=== PATIENT | female | born 1940 | race African-American/Black ===

== ENCOUNTER 2022-12-19 17:37 | Inpatient (IN) | payer OTHER ==
[2022-12-19] MEDS ORDERED: ACETAMINOPHEN 1000 MG/100 ML BAG IVPB ONE (18:40)
[2022-12-19] MEDS ORDERED: ONDANSETRON 4 MG/2 ML VIAL IVPUSH ONE (18:40)
[2022-12-19] MEDS ORDERED: SODIUM CHLORIDE 0.9% 1000 ML INFUS.BAG IV ONE ×2 (18:40→23:07)
[2022-12-19] MEDS ORDERED: FAMOTIDINE 20 MG/50 ML IVPB 20 MG/50 ML MG IVPB ONE ×2 (18:40→18:49)
[2022-12-19] MEDS ORDERED: ONDANSETRON 4 MG/2 ML VIAL ONE (18:48)
[2022-12-19] MEDS ORDERED: ACETAMINOPHEN INJECTION 100 ML IVPB ONE (18:48)
[2022-12-19 19:21] LABS: EOS % 0.4 % (0-4.5); HEMATOCRIT 24.8 % (32.4-45.2); HEMOGLOBIN 8.3 GM/dL (10.7-15.3); LYMPH % 24.3 % (8-40); MCH 31.1 pg (25.7-33.7); MCHC 33.4 g/dl (32.0-36.0); MEAN CELL VOLUME 93.1 fl (80-96); MONO % 8.2 % (3.8-10.2); NEUT % 66.1 % (42.8-82.8); PLATELET COUNT 326 10^3/uL (134-434); RBC 2.66 M/mm3 (3.60-5.2); RDW 14.7 % (11.6-15.6); WHITE BLOOD COUNT 6.7 K/mm3 (4.0-10.0)
[2022-12-19 19:32] LABS: INR 1.15 (0.83-1.09); PROTHROMBIN TIME (PATIENT) 13.3 SEC (9.7-13.0)
[2022-12-19 19:35] LABS: ACTIVATED PTT 26.1 SECONDS (25.2-36.5)
[2022-12-19 19:38] LABS: VENOUS O2 SATURATION 37.8 % (70-80); VENOUS PCO2 32.7 mmHg (38-52); VENOUS PH 7.456 (7.310-7.410)
[2022-12-19 19:47] LABS: CALCIUM 9.4 mg/dL (8.5-10.1)
[2022-12-19 19:48] LABS: ALBUMIN 3.2 g/dl (3.4-5.0); BLOOD UREA NITROGEN 12.7 mg/dL (7-18)
[2022-12-19 19:51] LABS: CREATININE 0.5 mg/dL (0.55-1.3)
[2022-12-19 19:52] LABS: BILIRUBIN,TOTAL 0.5 mg/dL (0.2-1); TOT PROT 6.4 g/dl (6.4-8.2)
[2022-12-19] MEDS ORDERED: DEXTROSE 50%-WATER 25 GM/50 ML DISP.SYRIN ONE (20:04)
[2022-12-19] MEDS ORDERED: DEXTROSE 50%-WATER - 25 GM/50 ML VIAL IVPUSH ONE (20:09)
[2022-12-20 02:23] LABS: EPI CELLS 5 /uL (0-25.1); HYALINE CASTS 2 /uL (0-3.1); PH,URINE 5.5 (5.0-8.0); URINE APPEARANCE CLEAR; URINE BACTERIA 0 /uL (0-1359); URINE BILIRUBIN NEGATIVE (NEGATIVE); URINE COLOR YELLOW; URINE GLUCOSE (UA) 1+ (NEGATIVE); URINE KETONE 2+ (NEGATIVE); URINE LEUK ESTERASE NEGATIVE (NEGATIVE); URINE NITRITE NEGATIVE (NEGATIVE); URINE PROTEIN NEGATIVE (NEGATIVE); URINE RBC 13 /uL (0-23.9); URINE UROBILINOGEN 0.2 mg/dL (0.2-1.0); URINE WBC 21 /uL (0-25.8)
[2022-12-20] MEDS ORDERED: ACETAMINOPHEN 325 MG TABLET (FP) PO PRN (06:33)
[2022-12-20] MEDS ORDERED: INSULIN SLIDING SCALE (NOVOLOG) 1 VIAL SQ SCH (07:00)
[2022-12-20 07:55] LABS: BASO % 0.6 % (0-2.0); EOS % 0.8 % (0-4.5); HEMATOCRIT 23.6 % (32.4-45.2); HEMOGLOBIN 7.8 GM/dL (10.7-15.3); LYMPH % 27.3 % (8-40); MCH 30.6 pg (25.7-33.7); MCHC 32.9 g/dl (32.0-36.0); MEAN CELL VOLUME 93.1 fl (80-96); MEAN PLT VOLUME 7.1 fl (7.5-11.1); MONO % 7.9 % (3.8-10.2); NEUT % 63.4 % (42.8-82.8); PLATELET COUNT 324 10^3/uL (134-434); RBC 2.53 M/mm3 (3.60-5.2); RDW 14.9 % (11.6-15.6); WHITE BLOOD COUNT 5.2 K/mm3 (4.0-10.0)
[2022-12-20 08:15] LABS: ALBUMIN 2.7 g/dl (3.4-5.0); CALCIUM 8.5 mg/dL (8.5-10.1)
[2022-12-20 08:16] LABS: BLOOD UREA NITROGEN 7.2 mg/dL (7-18); MAGNESIUM 1.9 mg/dL (1.8-2.4)
[2022-12-20 08:18] LABS: CREATININE 0.4 mg/dL (0.55-1.3)
[2022-12-20 08:19] LABS: PHOSPHOROUS 2.6 mg/dL (2.5-4.9)
[2022-12-20 08:20] LABS: BILIRUBIN,TOTAL 0.4 mg/dL (0.2-1); TOT PROT 5.8 g/dl (6.4-8.2)
[2022-12-20] MEDS: DEXTROSE 5%-NORMAL SALINE 1,000 ML IV SCH (21:55)
[2022-12-21] MEDS: POLYETHYLENE GLYCOL (HEALTHYLAX) 3350 17 GM PACKET PO SCH (10:24)
[2022-12-21 10:44] LABS: BASO % 0.3 % (0-2.0); HEMATOCRIT 25.2 % (32.4-45.2); HEMOGLOBIN 8.6 GM/dL (10.7-15.3); LYMPH % 25.5 % (8-40); MCH 31.3 pg (25.7-33.7); MCHC 33.9 g/dl (32.0-36.0); MEAN CELL VOLUME 92.2 fl (80-96); MONO % 8.7 % (3.8-10.2); NEUT % 64.5 % (42.8-82.8); PLATELET COUNT 287 10^3/uL (134-434); RBC 2.73 M/mm3 (3.60-5.2); RDW 14.8 % (11.6-15.6); WHITE BLOOD COUNT 5.1 K/mm3 (4.0-10.0)
[2022-12-21 11:04] LABS: CALCIUM 8.7 mg/dL (8.5-10.1)
[2022-12-21 11:09] LABS: CREATININE 0.5 mg/dL (0.55-1.3)
[2022-12-21 11:10] LABS: BLOOD UREA NITROGEN 5.9 mg/dL (7-18)
[2022-12-21] MEDS: DEXTROSE 5%-NORMAL SALINE 1,000 ML IV SCH (11:55)
[2022-12-21] MEDS: ENOXAPARIN NA (PORCINE) 40 MG/0.4 ML DISP.SYRIN SQ SCH (15:11)
[2022-12-22 08:38] LABS: HEMATOCRIT 24.6 % (32.4-45.2); HEMOGLOBIN 8.1 GM/dL (10.7-15.3); MCH 30.3 pg (25.7-33.7); MCHC 32.9 g/dl (32.0-36.0); MEAN CELL VOLUME 91.9 fl (80-96); MEAN PLT VOLUME 7.2 fl (7.5-11.1); PLATELET COUNT 280 10^3/uL (134-434); RBC 2.67 M/mm3 (3.60-5.2); RDW 14.6 % (11.6-15.6); WHITE BLOOD COUNT 4.4 K/mm3 (4.0-10.0)
[2022-12-22] MEDS: ENOXAPARIN NA (PORCINE) 40 MG/0.4 ML DISP.SYRIN SQ SCH (09:03)
[2022-12-22] MEDS: POLYETHYLENE GLYCOL (HEALTHYLAX) 3350 17 GM PACKET PO SCH (09:04)
[2022-12-22] MEDS ORDERED: BISACODYL 10 MG SUPP.RECT PR ONE (16:01)
[2022-12-22] MEDS: PANTOPRAZOLE SODIUM 40 MG VIAL IVPUSH SCH (18:10)
[2022-12-23] MEDS: POLYETHYLENE GLYCOL (HEALTHYLAX) 3350 17 GM PACKET PO SCH (09:22)
[2022-12-23] MEDS: PANTOPRAZOLE SODIUM 40 MG VIAL IVPUSH SCH (09:22)
[2022-12-23 11:31] LABS: BASO % 0.5 % (0-2.0); HEMATOCRIT 22.1 % (32.4-45.2); HEMOGLOBIN 7.5 GM/dL (10.7-15.3); LYMPH % 21.4 % (8-40); MCH 31.4 pg (25.7-33.7); MCHC 34.1 g/dl (32.0-36.0); MEAN PLT VOLUME 6.8 fl (7.5-11.1); MONO % 7.6 % (3.8-10.2); NEUT % 69.5 % (42.8-82.8); PLATELET COUNT 250 10^3/uL (134-434); RDW 14.6 % (11.6-15.6)
[2022-12-23 11:50] LABS: CALCIUM 8.5 mg/dL (8.5-10.1)
[2022-12-23 11:51] LABS: BLOOD UREA NITROGEN 8.7 mg/dL (7-18)
[2022-12-23 11:53] LABS: CREATININE 0.5 mg/dL (0.55-1.3)
[2022-12-23] MEDS ORDERED: ACETAMINOPHEN 325 MG TABLET (FP) PO PRN (14:51)
[2022-12-24] MEDS: POLYETHYLENE GLYCOL (HEALTHYLAX) 3350 17 GM PACKET PO SCH (09:41)
[2022-12-24 10:04] LABS: BASO % 0.5 % (0-2.0); HEMATOCRIT 28.1 % (32.4-45.2); HEMOGLOBIN 9.3 GM/dL (10.7-15.3); LYMPH % 28.9 % (8-40); MCH 29.4 pg (25.7-33.7); MCHC 33.2 g/dl (32.0-36.0); MEAN CELL VOLUME 88.7 fl (80-96); MEAN PLT VOLUME 7.6 fl (7.5-11.1); NEUT % 60.6 % (42.8-82.8); PLATELET COUNT 251 10^3/uL (134-434); RBC 3.17 M/mm3 (3.60-5.2); WHITE BLOOD COUNT 5.2 K/mm3 (4.0-10.0)
[2022-12-24 10:07] LABS: INR 1.02 (0.83-1.09); PROTHROMBIN TIME (PATIENT) 11.8 SEC (9.7-13.0)
[2022-12-24] MEDS: PANTOPRAZOLE SODIUM 40 MG VIAL IVPUSH SCH (10:11)
[2022-12-24 10:27] LABS: CALCIUM 8.9 mg/dL (8.5-10.1)
[2022-12-24 10:28] LABS: BLOOD UREA NITROGEN 8.2 mg/dL (7-18)
[2022-12-24 10:31] LABS: CREATININE 0.5 mg/dL (0.55-1.3)
[2022-12-24 16:51] VITALS: BMI 16.6
[2022-12-24 18:55] VITALS: RESP 18
[2022-12-24] MEDS: PANTOPRAZOLE 40 MG TABLET PO SCH (22:10)
[2022-12-25] MEDS: PANTOPRAZOLE 40 MG TABLET PO SCH (09:05)
[2022-12-25] MEDS: POLYETHYLENE GLYCOL (HEALTHYLAX) 3350 17 GM PACKET PO SCH (09:08)
[2022-12-25 09:11] LABS: HEMOGLOBIN 9.3 GM/dL (10.7-15.3); MCH 30.6 pg (25.7-33.7); MCHC 34.5 g/dl (32.0-36.0); MEAN CELL VOLUME 88.6 fl (80-96); MEAN PLT VOLUME 7.1 fl (7.5-11.1); PLATELET COUNT 245 10^3/uL (134-434); RBC 3.05 M/mm3 (3.60-5.2); RDW 18.1 % (11.6-15.6); WHITE BLOOD COUNT 4.7 K/mm3 (4.0-10.0)
[2022-12-25 10:30] LABS: CREATININE 0.4 mg/dL (0.55-1.3)
[2022-12-25 10:33] LABS: BLOOD UREA NITROGEN 7.2 mg/dL (7-18)
[2022-12-25 18:47] VITALS: BP 133/80; PULSE 102; TEMP 98.3
== END 2022-12-25 19:03 | disposition home or self-care (01) | DRG 377 ==
LOC: JER 17:37 → JERBED 22:20 → J4W 12-20 06:08 → OBSVTOIN 12-20 12:36 → J5S 12-23 12:30
PROVIDERS: ADMIT Internal Medicine; ATTEND Internal Medicine
PROC: 30233N1 Transfusion of Nonautologous Red Blood Cells into Peripheral Vein, Percutaneous Approach (ICD-10-PCS; 2022-12-24)
PROC: 0DB68ZX Excision of Stomach, Via Natural or Artificial Opening Endoscopic, Diagnostic (ICD-10-PCS; principal; 2022-12-24 11:30)
DX: K29.61 Other gastritis with bleeding (principal); E43 Unspecified severe protein-calorie malnutrition; Z68.1 Body mass index [BMI] 19.9 or less, adult; K31.5 Obstruction of duodenum; Y92.488 Other paved roadways as the place of occurrence of the external cause; D50.9 Iron deficiency anemia, unspecified; R55 Syncope and collapse; E16.2 Hypoglycemia, unspecified; R10.9 Unspecified abdominal pain; K44.9 Diaphragmatic hernia without obstruction or gangrene; R41.82 Altered mental status, unspecified; K29.60 Other gastritis without bleeding; I10 Essential (primary) hypertension; K26.9 Duodenal ulcer, unspecified as acute or chronic, without hemorrhage or perforation; K59.00 Constipation, unspecified; E78.5 Hyperlipidemia, unspecified; W18.39XA Other fall on same level, initial encounter
CPT/HCPCS: 0241U-QW; 36415; 36430; 70450-TC; 71045-TC-FY; 72125-TC; 73130-TC-LT-FY; 73130-TC-RT-FY; 73140-TC-LT-FY; 74177-TC; 74240-TC-FY; 80048; 80053; 80061; 81003; 82272; 82607; 82728; 82746; 82803; 82962; 83010; 83540; 83550; 83605; 83615; 83690; 83735; 84100; 84155; 84165; 84443; 84466; 84484; 85025; 85027; 85045; 85610; 85730; 86850; 86900; 86901; 86922; 87086; 88305-TC; 88341-TC; 93005; 93010; 93306-TC; 93880-TC; 97116-GP; 97161-GP; 99285-25; G0378; P9058; Q9967

== ENCOUNTER 2023-04-01 04:51 | Day surgery (SDC) | payer OTHER ==
[2023-03-31 09:58] VITALS: BMI 18.3
[2023-04-01 07:40] VITALS: TEMP 98
[2023-04-01 08:54] VITALS: BP 162/74; PULSE 71; RESP 20
== END 2023-04-01 09:25 | disposition home or self-care (01) ==
LOC: JASU-ENDO 04:51
PROVIDERS: ATTEND Student in an Organized Health Care Education/Training Program
PROC: 0DB78ZX Excision of Stomach, Pylorus, Via Natural or Artificial Opening Endoscopic, Diagnostic (ICD-10-PCS; 2023-04-01)
PROC: 0DB68ZX Excision of Stomach, Via Natural or Artificial Opening Endoscopic, Diagnostic (ICD-10-PCS; 2023-04-01)
PROC: 0DB48ZX Excision of Esophagogastric Junction, Via Natural or Artificial Opening Endoscopic, Diagnostic (ICD-10-PCS; principal; 2023-04-01 08:00)
DX: K21.00 Gastro-esophageal reflux disease with esophagitis, without bleeding (principal); K44.9 Diaphragmatic hernia without obstruction or gangrene; K29.50 Unspecified chronic gastritis without bleeding; B96.81 Helicobacter pylori [H. pylori] as the cause of diseases classified elsewhere
CPT/HCPCS: 88305-TC; 88342-TC

== ENCOUNTER 2023-12-14 16:45 | Inpatient (IN) | payer OTHER ==
[2023-12-14] MEDS ORDERED: ACETAMINOPHEN INJECTION 100 ML IVPB ONE (17:30)
[2023-12-14] MEDS ORDERED: DEXTROSE 50%-WATER 25 GM/50 ML DISP.SYRIN ONE ×3 (17:30→18:39)
[2023-12-14] MEDS: ACETAMINOPHEN 1000 MG/100 ML BAG IVPB ONE (17:59)
[2023-12-14] MEDS: LACTATED RINGERS SOLUTION 1000 ML INFUS.BAG IV ONE (17:59)
[2023-12-14 18:05] LABS: VENOUS BASE EXCESS -2.4 mmol/L (-2-2); VENOUS O2 SATURATION 49.7 % (70-80); VENOUS PCO2 41.9 mmHg (38-52); VENOUS PH 7.357 (7.310-7.410)
[2023-12-14 18:10] LABS: EPI CELLS 19 /uL (0-25.1); HYALINE CASTS 10 /uL (0-3.1); URINE APPEARANCE CLOUDY; URINE BACTERIA 1 /uL (0-1359); URINE BILIRUBIN 1+ (NEGATIVE); URINE COLOR DK YELLOW; URINE GLUCOSE (UA) NEGATIVE (NEGATIVE); URINE KETONE TRACE (NEGATIVE); URINE LEUK ESTERASE NEGATIVE (NEGATIVE); URINE NITRITE NEGATIVE (NEGATIVE); URINE PROTEIN 1+ (NEGATIVE); URINE UROBILINOGEN 0.2 mg/dL (0.2-1.0); URINE WBC 39 /uL (0-25.8)
[2023-12-14 18:11] LABS: EOS % 2.2 % (0-4.5); HEMATOCRIT 35.7 % (32.4-45.2); HEMOGLOBIN 11.5 GM/dL (10.7-15.3); LYMPH % 2.7 % (8-40); MCH 29.9 pg (25.7-33.7); MCHC 32.4 g/dl (32.0-36.0); MEAN CELL VOLUME 92.4 fl (80-96); MEAN PLT VOLUME 8.6 fl (7.5-11.1); MONO % 0.6 % (3.8-10.2); NEUT % 94.5 % (42.8-82.8); PLATELET COUNT 218 10^3/uL (134-434); RBC 3.86 M/mm3 (3.60-5.2); WHITE BLOOD COUNT 13.2 K/mm3 (4.0-10.0)
[2023-12-14 18:15] LABS: INR 1.19 (0.83-1.09); PROTHROMBIN TIME (PATIENT) 13.8 SEC (9.7-13.0)
[2023-12-14] MEDS: DEXTROSE 50%-WATER 25 GM/50 ML DISP.SYRIN IVPUSH ONE (18:15)
[2023-12-14 18:17] LABS: ACTIVATED PTT 28.3 SECONDS (25.2-36.5)
[2023-12-14 18:29] LABS: ALBUMIN 1.8 g/dl (3.4-5.0); BLOOD UREA NITROGEN 59.8 mg/dL (7-18); CALCIUM 9.7 mg/dL (8.5-10.1); MAGNESIUM 3.3 mg/dL (1.8-2.4)
[2023-12-14 18:31] LABS: CREATININE 1.2 mg/dL (0.55-1.3)
[2023-12-14 18:32] LABS: PHOSPHOROUS 5.4 mg/dL (2.5-4.9)
[2023-12-14 18:34] LABS: TOT PROT 8.4 g/dl (6.4-8.2)
[2023-12-14 18:44] LABS: LACTIC ACID 3.2 mmol/L (0.4-2.0)
[2023-12-14] MEDS: DEXTROSE 50%-WATER - 25 GM/50 ML VIAL IVPUSH ONE (18:46)
[2023-12-14] MEDS ORDERED: AZITHROMYCIN IVPB 500 MG/250 ML BAG IVPB ONE (18:50)
[2023-12-14] MEDS ORDERED: CEFTRIAXONE 1 GM/50 ML BAG ONE (18:50)
[2023-12-14 18:57] LABS: BILIRUBIN,TOTAL 1.9 mg/dL (0.2-1); POTASSIUM 4.2 mmol/L (3.5-5.1)
[2023-12-14] MEDS ORDERED: dilTIAZem HCL 125 MG/25 ML - 25 ML VIAL ONE ×2 (18:59→19:29)
[2023-12-14] MEDS: AZITHROMYCIN IVPB 500 MG in DEXTROSE 5%-WATER - 250 ML IVPB ONE (19:07)
[2023-12-14] MEDS: CEFTRIAXONE 1,000 MG in DEXTROSE 5%-WATER - 50 ML IVPB ONE (19:07)
[2023-12-14] MEDS: dilTIAZem HCL 50 MG/10 ML - 10 ML VIAL IVPUSH ONE ×2 (19:12→20:33)
[2023-12-14] MEDS: SODIUM CHLORIDE 0.9% 500 ML INFUS.BAG IV ONE (19:12)
[2023-12-14 19:19] LABS: URINE RBC 44.1 /uL (0-23.9)
[2023-12-14] MEDS: DEXTROSE 5%-NORMAL SALINE 1,000 ML IV SCH (20:33)
[2023-12-14 23:10] LABS: CHLORIDE 109 mmol/L (98-107); SODIUM 144 mmol/L (136-145)
[2023-12-14 23:11] LABS: CALCIUM 8.6 mg/dL (8.5-10.1)
[2023-12-14 23:13] LABS: ALBUMIN 1.6 g/dl (3.4-5.0); BLOOD UREA NITROGEN 52.1 mg/dL (7-18)
[2023-12-14 23:15] LABS: SGPT/ALT 36 U/L (13-61)
[2023-12-14 23:16] LABS: CREATININE 1.2 mg/dL (0.55-1.3); SGOT/AST 115 U/L (15-37)
[2023-12-14 23:17] LABS: BILIRUBIN,TOTAL 1.5 mg/dL (0.2-1)
[2023-12-14 23:19] LABS: ALK PHOS 86 U/L (45-117)
[2023-12-14 23:20] LABS: ANION GAP 14 mmol/L (4-13); CO2 21 mmol/L (21-32); GLUCOSE,RANDOM 490 mg/dL (74-106); TOT PROT 5.3 g/dl (6.4-8.2)
[2023-12-14 23:28] LABS: LACTIC ACID 4.3 mmol/L (0.4-2.0)
[2023-12-15] MEDS ORDERED: DEXAMETHASONE 4 MG TABLET (FP) PO SCH ×2 (00:40→10:00)
[2023-12-15] MEDS: KCL 10 MEQ IVPB 10 MEQ/100 ML INFUS.BAG IVPB SCH (00:56)
[2023-12-15] MEDS: REMDESIVIR 200 MG in SODIUM CHLORIDE 250 ML IVPB ONE (02:14)
[2023-12-15] MEDS: DEXTROSE 5%-NORMAL SALINE 980 ML with POTASSIUM CHLORIDE 40 MEQ IV SCH (02:15)
[2023-12-15] MEDS: dilTIAZem HCL 30 MG TABLET PO SCH (04:20)
[2023-12-15] MEDS ORDERED: PIPERACILLIN/TAZOB 2.25 GM 2.25 GM in DEXTROSE 5%-WATER - 50 ML IVPB SCH (05:24)
[2023-12-15] MEDS: PIPERACILLIN/TAZOB 2.25 GM 2.25 GM in DEXTROSE 5%-WATER - 50 ML IVPB SCH (06:09)
[2023-12-15 07:35] LABS: HEMATOCRIT 39.1 % (32.4-45.2); HEMOGLOBIN 12.8 GM/dL (10.7-15.3); MCH 30.1 pg (25.7-33.7); MCHC 32.8 g/dl (32.0-36.0); MEAN CELL VOLUME 91.6 fl (80-96); MEAN PLT VOLUME 9.2 fl (7.5-11.1); PLATELET COUNT 224 10^3/uL (134-434); RBC 4.27 M/mm3 (3.60-5.2); RDW 15.1 % (11.6-15.6); WHITE BLOOD COUNT 19.5 K/mm3 (4.0-10.0)
[2023-12-15 07:55] LABS: POTASSIUM 4.5 mmol/L (3.5-5.1)
[2023-12-15 07:59] LABS: ALBUMIN 1.8 g/dl (3.4-5.0); BLOOD UREA NITROGEN 49.6 mg/dL (7-18)
[2023-12-15 08:04] LABS: BILIRUBIN,TOTAL 1.1 mg/dL (0.2-1); TOT PROT 5.7 g/dl (6.4-8.2)
[2023-12-15 08:17] LABS: LACTIC ACID 3.4 mmol/L (0.4-2.0)
[2023-12-15 09:35] LABS: ANISOCYTOSIS 0; MACROCYTOSIS 0
[2023-12-15] MEDS ORDERED: ALBUTEROL SO4 HFA INHALER IH PRN (09:57)
[2023-12-15] MEDS: PANTOPRAZOLE 40 MG TABLET PO SCH (10:36)
[2023-12-15] MEDS: DEXAMETHASONE 4 MG TABLET (FP) PO SCH (10:36)
[2023-12-15] MEDS: ENOXAPARIN NA (PORCINE) 40 MG/0.4 ML DISP.SYRIN SQ SCH (10:37)
[2023-12-15] MEDS: morphine SULFATE 4 MG/ML VIAL IVPUSH PRN (11:52)
[2023-12-15] MEDS ORDERED: DEXTROSE 5%-NORMAL SALINE 980 ML with POTASSIUM CHLORIDE 40 MEQ IV SCH (13:13)
[2023-12-15] MEDS: D5-NS + 40 MEQ KCL - 40 MEQ/1,000 ML INFUS.BAG IV SCH (18:30)
[2023-12-16] MEDS ORDERED: PIPERACILLIN/TAZOB 3.375 GM 3.375 GM in DEXTROSE 5%-WATER - 50 ML IVPB SCH (02:00)
[2023-12-16] MEDS ORDERED: PIPERACILLIN/TAZOB 2.25 GM 2.25 GM in DEXTROSE 5%-WATER - 50 ML IVPB SCH (03:00)
[2023-12-16 08:31] LABS: HEMATOCRIT 35.3 % (32.4-45.2); HEMOGLOBIN 11.6 GM/dL (10.7-15.3); MCH 30.4 pg (25.7-33.7); MEAN CELL VOLUME 92.2 fl (80-96); PLATELET COUNT 157 10^3/uL (134-434); RBC 3.83 M/mm3 (3.60-5.2); WHITE BLOOD COUNT 21.1 K/mm3 (4.0-10.0)
[2023-12-16] MEDS: REMDESIVIR 100 MG in SODIUM CHLORIDE 250 ML IVPB SCH (09:18)
[2023-12-16] MEDS: DEXAMETHASONE SOD PHOSPHATE 10 MG/1 ML VIAL IVPUSH SCH (09:18)
[2023-12-16 10:58] LABS: ANISOCYTOSIS 0; HELMET CELLS 0; HOWELL-JOLLY BODIES 0; MACROCYTOSIS 0; OVALOCYTE 0; ROULEAU 0; SICKELED CELLS 0; TARGET CELLS 0; TEAR DROP CELLS 0; TOXIC GRANULATION 0
[2023-12-16 12:33] LABS: POTASSIUM 5.6 mmol/L (3.5-5.1)
[2023-12-16 12:37] LABS: BLOOD UREA NITROGEN 34.1 mg/dL (7-18); CALCIUM 8.9 mg/dL (8.5-10.1)
[2023-12-16 12:40] LABS: CREATININE 0.7 mg/dL (0.55-1.3)
[2023-12-16 12:42] LABS: BILIRUBIN,TOTAL 0.4 mg/dL (0.2-1); TOT PROT 4.8 g/dl (6.4-8.2)
[2023-12-16 12:51] LABS: ALBUMIN 1.3 g/dl (3.4-5.0); LACTIC ACID 2.5 mmol/L (0.4-2.0)
[2023-12-16] MEDS ORDERED: DEXTROSE 5%-WATER - 1,000 ML IV SCH (14:15)
[2023-12-16] MEDS: CALCIUM GLUCONATE 10% - 1,000 MG/10 ML VIAL IVPUSH ONE (16:21)
[2023-12-16] MEDS: INSULIN REGULAR HUMAN 100 UNITS/ML *VIAL IVPUSH ONE (16:21)
[2023-12-16] MEDS: DEXTROSE 50%-WATER 25 GM/50 ML DISP.SYRIN IVPUSH ONE (16:21)
[2023-12-16] MEDS: DEXTROSE 5%-WATER - 1,000 ML IV SCH ×2 (16:22→20:00)
[2023-12-16] MEDS: PIPERACILLIN/TAZOB 3.375 GM 3.375 GM in DEXTROSE 5%-WATER - 50 ML IVPB SCH (18:15)
[2023-12-16 18:59] LABS: CHLORIDE 134 mmol/L (98-107)
[2023-12-16 19:00] LABS: CALCIUM 9.4 mg/dL (8.5-10.1)
[2023-12-16 19:01] LABS: BLOOD UREA NITROGEN 31.2 mg/dL (7-18); CO2 22 mmol/L (21-32); GLUCOSE,RANDOM 175 mg/dL (74-106); MAGNESIUM 2.5 mg/dL (1.8-2.4)
[2023-12-16 19:04] LABS: CREATININE 0.8 mg/dL (0.55-1.3); PHOSPHOROUS 1.6 mg/dL (2.5-4.9)
[2023-12-16 19:14] LABS: ANION GAP 7 mmol/L (4-13); SODIUM 162 mmol/L (136-145)
[2023-12-16 19:17] LABS: POTASSIUM 5.1 mmol/L (3.5-5.1)
[2023-12-16 19:18] LABS: CALCIUM 9.5 mg/dL (8.5-10.1)
[2023-12-16 19:19] LABS: BLOOD UREA NITROGEN 32.2 mg/dL (7-18)
[2023-12-16 19:23] LABS: CREATININE 0.8 mg/dL (0.55-1.3)
[2023-12-16] MEDS ORDERED: PNEUMOC 20-VAL CONJ-DIP CRM/PF 0.5 ML SYRINGE IM ONE (22:00)
[2023-12-17] MEDS: DEXTROSE 5%-WATER - 1,000 ML IV SCH
[2023-12-17] MEDS: NAPH,MB-DB/K PH,MBDB POWDER PACKET PO ONE (01:32)
[2023-12-17 07:58] LABS: POTASSIUM 5.4 mmol/L (3.5-5.1)
[2023-12-17 08:00] LABS: HEMATOCRIT 35.8 % (32.4-45.2); HEMOGLOBIN 11.5 GM/dL (10.7-15.3); MCH 29.8 pg (25.7-33.7); MCHC 32.1 g/dl (32.0-36.0); MEAN CELL VOLUME 92.8 fl (80-96); MEAN PLT VOLUME 9.2 fl (7.5-11.1); PLATELET COUNT 127 10^3/uL (134-434); RBC 3.85 M/mm3 (3.60-5.2); RDW 16.2 % (11.6-15.6); WHITE BLOOD COUNT 22.3 K/mm3 (4.0-10.0)
[2023-12-17 08:01] LABS: BLOOD UREA NITROGEN 32.1 mg/dL (7-18)
[2023-12-17 08:04] LABS: CREATININE 0.7 mg/dL (0.55-1.3)
[2023-12-17] MEDS: SODIUM ZIRCONIUM CYCLOSILICATE (LOKELMA) 5 GM PACKET PO ONE ×2 (09:39→17:08)
[2023-12-17 14:15] LABS: ARTERIAL BLD GAS O2 SATURATION 98.9 % (95-98); ARTERIAL BLOOD GAS BASE EXCESS -3.8 mmol/L (-2-2); ARTERIAL BLOOD GAS PO2 134.4 mmHg (80-100); ARTERIAL BLOOD GAS pH 7.469 (7.350-7.450)
[2023-12-17 14:16] LABS: ALLENS TEST POSITIVE
[2023-12-17 21:12] LABS: POTASSIUM 5.1 mmol/L (3.5-5.1)
[2023-12-17 21:14] LABS: BLOOD UREA NITROGEN 31.8 mg/dL (7-18); CALCIUM 8.3 mg/dL (8.5-10.1)
[2023-12-17 21:18] LABS: CREATININE 0.7 mg/dL (0.55-1.3)
[2023-12-18 07:22] LABS: HEMATOCRIT 34.9 % (32.4-45.2); HEMOGLOBIN 11.3 GM/dL (10.7-15.3); MCH 29.6 pg (25.7-33.7); MCHC 32.5 g/dl (32.0-36.0); MEAN PLT VOLUME 9.2 fl (7.5-11.1); PLATELET COUNT 118 10^3/uL (134-434); RBC 3.84 M/mm3 (3.60-5.2); RDW 15.8 % (11.6-15.6)
[2023-12-18 07:24] LABS: POTASSIUM 4.9 mmol/L (3.5-5.1)
[2023-12-18 07:31] LABS: CALCIUM 8.2 mg/dL (8.5-10.1)
[2023-12-18 07:32] LABS: ALBUMIN 1.3 g/dl (3.4-5.0); BLOOD UREA NITROGEN 35.4 mg/dL (7-18); MAGNESIUM 1.9 mg/dL (1.8-2.4)
[2023-12-18 07:35] LABS: CREATININE 0.7 mg/dL (0.55-1.3); PHOSPHOROUS 3.1 mg/dL (2.5-4.9)
[2023-12-18 07:36] LABS: BILIRUBIN,TOTAL 0.4 mg/dL (0.2-1)
[2023-12-18] MEDS ORDERED: INSULIN (NOVOLOG) ASPART 100 UNITS/ML 10ML VIAL ONE (09:14)
[2023-12-18] MEDS: SODIUM ZIRCONIUM CYCLOSILICATE (LOKELMA) 5 GM PACKET PO SCH (09:24)
[2023-12-18] MEDS ORDERED: HYDROmorphone HCl 2 MG/ML VIAL IVPUSH PRN (13:59)
[2023-12-18] MEDS: HYDROmorphone HCl 2 MG/ML VIAL IVPUSH PRN (14:27)
[2023-12-18 15:09] VITALS: BMI 20.2
[2023-12-18] MEDS: INSULIN ASPART SLIDING SCALE (NOVOLOG) 1 VIAL SQ SCH (18:55)
[2023-12-18] MEDS: dilTIAZem HCL 30 MG TABLET PO SCH (19:56)
[2023-12-19 07:40] LABS: HEMATOCRIT 34.5 % (32.4-45.2); HEMOGLOBIN 11.1 GM/dL (10.7-15.3); MCH 29.6 pg (25.7-33.7); MCHC 32.3 g/dl (32.0-36.0); MEAN CELL VOLUME 91.7 fl (80-96); MEAN PLT VOLUME 9.5 fl (7.5-11.1); PLATELET COUNT 113 10^3/uL (134-434); RBC 3.76 M/mm3 (3.60-5.2); RDW 15.8 % (11.6-15.6); WHITE BLOOD COUNT 21.1 K/mm3 (4.0-10.0)
[2023-12-19 07:51] LABS: POTASSIUM 4.4 mmol/L (3.5-5.1)
[2023-12-19 07:57] LABS: CALCIUM 8.4 mg/dL (8.5-10.1)
[2023-12-19 07:58] LABS: ALBUMIN 1.4 g/dl (3.4-5.0); BLOOD UREA NITROGEN 47.6 mg/dL (7-18); MAGNESIUM 2.1 mg/dL (1.8-2.4)
[2023-12-19 08:01] LABS: CREATININE 0.8 mg/dL (0.55-1.3); PHOSPHOROUS 3.9 mg/dL (2.5-4.9)
[2023-12-19 08:03] LABS: BILIRUBIN,TOTAL 0.4 mg/dL (0.2-1)
[2023-12-19] MEDS: VANCOMYCIN/WATER FOR INJ (PEG) 1 GM/200 ML BAG IVPB ONE (13:06)
[2023-12-19] MEDS: HYDROmorphone HCl 2 MG/ML VIAL IVPUSH PRN (18:02)
[2023-12-20 07:50] LABS: HEMATOCRIT 34.9 % (32.4-45.2); MCH 29.1 pg (25.7-33.7); MCHC 31.5 g/dl (32.0-36.0); MEAN CELL VOLUME 92.2 fl (80-96); PLATELET COUNT 136 10^3/uL (134-434); RBC 3.79 M/mm3 (3.60-5.2); RDW 15.6 % (11.6-15.6); WHITE BLOOD COUNT 20.2 K/mm3 (4.0-10.0)
[2023-12-20 08:13] LABS: POTASSIUM 4.4 mmol/L (3.5-5.1)
[2023-12-20 08:19] LABS: ALBUMIN 1.6 g/dl (3.4-5.0); CALCIUM 8.1 mg/dL (8.5-10.1); MAGNESIUM 2.2 mg/dL (1.8-2.4)
[2023-12-20 08:20] LABS: BLOOD UREA NITROGEN 42.4 mg/dL (7-18); CREATININE 0.7 mg/dL (0.55-1.3)
[2023-12-20 08:22] LABS: BILIRUBIN,TOTAL 0.6 mg/dL (0.2-1); TOT PROT 5.3 g/dl (6.4-8.2)
[2023-12-20 08:23] LABS: PHOSPHOROUS 3.4 mg/dL (2.5-4.9)
[2023-12-20] MEDS: FAMOTIDINE 20 MG/50 ML IVPB 20 MG/50 ML MG IVPB SCH (22:11)
[2023-12-21] MEDS ORDERED: dilTIAZem HCL 30 MG TABLET GT SCH (08:15)
[2023-12-21 08:19] LABS: HEMATOCRIT 35.9 % (32.4-45.2); HEMOGLOBIN 11.4 GM/dL (10.7-15.3); MCH 29.2 pg (25.7-33.7); MCHC 31.8 g/dl (32.0-36.0); MEAN CELL VOLUME 91.7 fl (80-96); MEAN PLT VOLUME 9.9 fl (7.5-11.1); PLATELET COUNT 152 10^3/uL (134-434); RBC 3.92 M/mm3 (3.60-5.2); RDW 15.3 % (11.6-15.6); WHITE BLOOD COUNT 18.6 K/mm3 (4.0-10.0)
[2023-12-21 08:37] LABS: MAGNESIUM 2.2 mg/dL (1.8-2.4)
[2023-12-21 08:39] LABS: POTASSIUM 4.2 mmol/L (3.5-5.1)
[2023-12-21 08:41] LABS: PHOSPHOROUS 2.5 mg/dL (2.5-4.9)
[2023-12-21 08:44] LABS: CALCIUM 8.1 mg/dL (8.5-10.1)
[2023-12-21 08:45] LABS: ALBUMIN 1.6 g/dl (3.4-5.0)
[2023-12-21 08:46] LABS: BLOOD UREA NITROGEN 33.7 mg/dL (7-18); CREATININE 0.6 mg/dL (0.55-1.3)
[2023-12-21 08:48] LABS: BILIRUBIN,TOTAL 0.5 mg/dL (0.2-1); TOT PROT 5.4 g/dl (6.4-8.2)
[2023-12-21] MEDS: PANTOPRAZOLE SODIUM 40 MG VIAL IVPUSH SCH (09:20)
[2023-12-21] MEDS: SODIUM ZIRCONIUM CYCLOSILICATE (LOKELMA) 5 GM PACKET GT SCH (09:20)
[2023-12-21 10:34] LABS: ANISOCYTOSIS 0; MACROCYTOSIS 0
[2023-12-21] MEDS ORDERED: INSULIN (NOVOLOG) ASPART 100 UNITS/ML 10ML VIAL ONE ×2 (13:25→18:05)
[2023-12-21] MEDS: dilTIAZem HCL 30 MG TABLET GT SCH (18:06)
[2023-12-22 08:21] LABS: HEMATOCRIT 40.3 % (32.4-45.2); HEMOGLOBIN 12.8 GM/dL (10.7-15.3); MCH 29.2 pg (25.7-33.7); MCHC 31.8 g/dl (32.0-36.0); MEAN CELL VOLUME 91.8 fl (80-96); PLATELET COUNT 246 10^3/uL (134-434); RBC 4.38 M/mm3 (3.60-5.2); RDW 14.9 % (11.6-15.6)
[2023-12-22 08:24] LABS: INR 1.09 (0.83-1.09); PROTHROMBIN TIME (PATIENT) 12.6 SEC (9.7-13.0)
[2023-12-22 08:27] LABS: ACTIVATED PTT 24.5 SECONDS (25.2-36.5)
[2023-12-22] MEDS ORDERED: TAMSULOSIN HCL 0.4 MG CAP PO SCH (08:30)
[2023-12-22 08:35] LABS: POTASSIUM 4.1 mmol/L (3.5-5.1)
[2023-12-22 08:36] LABS: MAGNESIUM 2.2 mg/dL (1.8-2.4)
[2023-12-22 08:38] LABS: CALCIUM 8.8 mg/dL (8.5-10.1)
[2023-12-22 08:39] LABS: ALBUMIN 1.7 g/dl (3.4-5.0)
[2023-12-22 08:43] LABS: TOT PROT 5.9 g/dl (6.4-8.2)
[2023-12-22 08:44] LABS: CREATININE 0.5 mg/dL (0.55-1.3)
[2023-12-22 08:45] LABS: BILIRUBIN,TOTAL 0.4 mg/dL (0.2-1)
[2023-12-22 09:26] LABS: ANISOCYTOSIS 0; MACROCYTOSIS 0
[2023-12-22] MEDS: DOXAZOSIN MESYLATE 1 MG TABLET GT SCH (09:44)
[2023-12-22] MEDS: TAMSULOSIN HCL 0.4 MG CAP PO ONE ×2 (13:46→13:48)
[2023-12-22] MEDS: DOXAZOSIN MESYLATE 1 MG TABLET GT ONE (13:47)
[2023-12-23 07:31] LABS: HEMATOCRIT 36.4 % (32.4-45.2); HEMOGLOBIN 11.6 GM/dL (10.7-15.3); MCH 29.4 pg (25.7-33.7); MCHC 31.9 g/dl (32.0-36.0); MEAN CELL VOLUME 92.4 fl (80-96); MEAN PLT VOLUME 9.7 fl (7.5-11.1); PLATELET COUNT 262 10^3/uL (134-434); RBC 3.94 M/mm3 (3.60-5.2); RDW 14.7 % (11.6-15.6); WHITE BLOOD COUNT 18.5 K/mm3 (4.0-10.0)
[2023-12-23 08:15] LABS: POTASSIUM 4.4 mmol/L (3.5-5.1)
[2023-12-23 08:27] LABS: MAGNESIUM 2.3 mg/dL (1.8-2.4)
[2023-12-23 08:28] LABS: ALBUMIN 1.7 g/dl (3.4-5.0); BLOOD UREA NITROGEN 22.3 mg/dL (7-18)
[2023-12-23 08:30] LABS: CALCIUM 8.2 mg/dL (8.5-10.1); PHOSPHOROUS 2.8 mg/dL (2.5-4.9)
[2023-12-23] MEDS ORDERED: TAMSULOSIN HCL 0.4 MG CAP PO SCH (08:30)
[2023-12-23 08:31] LABS: CREATININE 0.5 mg/dL (0.55-1.3)
[2023-12-23 08:32] LABS: BILIRUBIN,TOTAL 0.5 mg/dL (0.2-1)
[2023-12-23 08:33] LABS: TOT PROT 5.4 g/dl (6.4-8.2)
[2023-12-23] MEDS: TAMSULOSIN HCL 0.4 MG CAP PO SCH (09:02)
[2023-12-23] MEDS ORDERED: DOXAZOSIN MESYLATE 1 MG TABLET GT SCH (10:00)
[2023-12-23] MEDS: PANTOPRAZOLE 40 MG TABLET PO SCH (10:18)
[2023-12-23 10:46] LABS: ANISOCYTOSIS 1+; MACROCYTOSIS 0
[2023-12-23] MEDS: SODIUM ZIRCONIUM CYCLOSILICATE (LOKELMA) 5 GM PACKET PO SCH (11:42)
[2023-12-23] MEDS: FUROSEMIDE 40 MG/4 ML INJECTABLE VIAL IVPUSH ONE (16:24)
[2023-12-23] MEDS: INSULIN ASPART SLIDING SCALE (NOVOLOG) 1 VIAL SQ SCH (16:34)
[2023-12-24 08:28] LABS: HEMOGLOBIN 11.6 GM/dL (10.7-15.3); MCH 29.1 pg (25.7-33.7); MCHC 31.2 g/dl (32.0-36.0); MEAN PLT VOLUME 9.6 fl (7.5-11.1); PLATELET COUNT 295 10^3/uL (134-434); RBC 3.98 M/mm3 (3.60-5.2)
[2023-12-24 08:39] LABS: POTASSIUM 4.4 mmol/L (3.5-5.1)
[2023-12-24 08:42] LABS: CALCIUM 8.7 mg/dL (8.5-10.1)
[2023-12-24 08:43] LABS: ALBUMIN 1.6 g/dl (3.4-5.0); BLOOD UREA NITROGEN 20.2 mg/dL (7-18)
[2023-12-24 08:46] LABS: CREATININE 0.5 mg/dL (0.55-1.3)
[2023-12-24 08:47] LABS: BILIRUBIN,TOTAL 0.4 mg/dL (0.2-1); TOT PROT 5.4 g/dl (6.4-8.2)
[2023-12-24 09:29] LABS: ANISOCYTOSIS 0; MACROCYTOSIS 0
[2023-12-24] MEDS: ACETAMINOPHEN 325 MG TABLET (FP) PO PRN (09:40)
[2023-12-24] MEDS: FLU VACC QS2022-23(6MOS UP)/PF 60 MCG/0.5 ML SYRINGE IM ONE (17:08)
[2023-12-24] MEDS ORDERED: INSULIN (NOVOLOG) ASPART 100 UNITS/ML 10ML VIAL ONE (17:26)
[2023-12-24] MEDS: APIXABAN 5 MG TABLET PO SCH (21:12)
[2023-12-25 07:53] LABS: HEMATOCRIT 36.7 % (32.4-45.2); HEMOGLOBIN 11.8 GM/dL (10.7-15.3); MCH 29.4 pg (25.7-33.7); MEAN CELL VOLUME 91.9 fl (80-96); MEAN PLT VOLUME 9.7 fl (7.5-11.1); PLATELET COUNT 323 10^3/uL (134-434); RDW 14.3 % (11.6-15.6); WHITE BLOOD COUNT 17.9 K/mm3 (4.0-10.0)
[2023-12-25 07:56] LABS: POTASSIUM 4.2 mmol/L (3.5-5.1)
[2023-12-25 08:06] LABS: CREATININE 0.4 mg/dL (0.55-1.3)
[2023-12-25 08:08] LABS: BLOOD UREA NITROGEN 19.9 mg/dL (7-18); CALCIUM 8.8 mg/dL (8.5-10.1)
[2023-12-25] MEDS ORDERED: APIXABAN 5 MG TABLET PO SCH (10:00)
[2023-12-25] MEDS: COLLAGENASE CLOSTRIDIUM HIST. 30 GRAMS TUBE TP SCH (17:26)
[2023-12-26 07:43] LABS: HEMATOCRIT 35.9 % (32.4-45.2); HEMOGLOBIN 11.9 GM/dL (10.7-15.3); MEAN CELL VOLUME 90.7 fl (80-96); MEAN PLT VOLUME 9.3 fl (7.5-11.1); PLATELET COUNT 392 10^3/uL (134-434); RBC 3.96 M/mm3 (3.60-5.2); RDW 14.8 % (11.6-15.6); WHITE BLOOD COUNT 15.5 K/mm3 (4.0-10.0)
[2023-12-26 08:05] LABS: POTASSIUM 4.5 mmol/L (3.5-5.1)
[2023-12-26 08:13] LABS: CALCIUM 8.5 mg/dL (8.5-10.1)
[2023-12-26 08:14] LABS: ALBUMIN 1.7 g/dl (3.4-5.0); BLOOD UREA NITROGEN 21.7 mg/dL (7-18)
[2023-12-26 08:17] LABS: CREATININE 0.5 mg/dL (0.55-1.3)
[2023-12-26 08:18] LABS: BILIRUBIN,TOTAL 0.4 mg/dL (0.2-1)
[2023-12-26 08:19] LABS: TOT PROT 5.4 g/dl (6.4-8.2)
[2023-12-26 17:42] LABS: HEMATOCRIT 36.9 % (32.4-45.2); HEMOGLOBIN 11.9 GM/dL (10.7-15.3); MCH 29.7 pg (25.7-33.7); MCHC 32.4 g/dl (32.0-36.0); MEAN CELL VOLUME 91.9 fl (80-96); MEAN PLT VOLUME 8.9 fl (7.5-11.1); PLATELET COUNT 352 10^3/uL (134-434); RBC 4.02 M/mm3 (3.60-5.2); WHITE BLOOD COUNT 19.1 K/mm3 (4.0-10.0)
[2023-12-27 06:53] LABS: HEMATOCRIT 35.5 % (32.4-45.2); HEMOGLOBIN 11.9 GM/dL (10.7-15.3); MCH 30.6 pg (25.7-33.7); MCHC 33.5 g/dl (32.0-36.0); MEAN CELL VOLUME 91.3 fl (80-96); PLATELET COUNT 338 10^3/uL (134-434); RBC 3.89 M/mm3 (3.60-5.2); RDW 14.3 % (11.6-15.6); WHITE BLOOD COUNT 13.6 K/mm3 (4.0-10.0)
[2023-12-27 07:00] LABS: POTASSIUM 4.5 mmol/L (3.5-5.1)
[2023-12-27 07:06] LABS: ALBUMIN 1.7 g/dl (3.4-5.0); CALCIUM 8.3 mg/dL (8.5-10.1)
[2023-12-27 07:07] LABS: BLOOD UREA NITROGEN 21.6 mg/dL (7-18)
[2023-12-27 07:09] LABS: CREATININE 0.4 mg/dL (0.55-1.3)
[2023-12-27 07:11] LABS: BILIRUBIN,TOTAL 0.4 mg/dL (0.2-1); TOT PROT 4.9 g/dl (6.4-8.2)
[2023-12-27] MEDS ORDERED: MAG HYDROX/AL HYDROX/SIMETH 30 ML UNIT-DOSE CUP PO PRN (09:44)
[2023-12-27] MEDS ORDERED: INSULIN (NOVOLOG) ASPART 100 UNITS/ML 10ML VIAL ONE (16:59)
[2023-12-28] MEDS: AMINO ACIDS/PROTEIN HYDROLYS 30 ML LIQUID.PKT PO SCH (09:17)
[2023-12-28] MEDS: MULTIVITAMINS (DAILY MVI) TABLET (FP) PO SCH (09:17)
[2023-12-28] MEDS ORDERED: DEXTROSE 50%-WATER 25 GM/50 ML DISP.SYRIN ONE (10:27)
[2023-12-28] MEDS ORDERED: ALBUTEROL SO4 HFA INHALER IH PRN (12:53)
[2023-12-28] MEDS ORDERED: MAG HYDROX/AL HYDROX/SIMETH 30 ML UNIT-DOSE CUP PO PRN (12:53)
[2023-12-28] MEDS: ACETAMINOPHEN 325 MG TABLET (FP) PO PRN (16:51)
[2023-12-28] MEDS: INSULIN ASPART SLIDING SCALE (NOVOLOG) 1 VIAL SQ SCH (17:00)
[2023-12-28] MEDS ORDERED: ACETAMINOPHEN 325 MG TABLET (FP) PO PRN (18:00)
[2023-12-28] MEDS: oxyCODONE HCL 5 MG TABLET PO PRN (18:00)
[2023-12-29 09:30] LABS: BASO % 0.9 % (0-2.0); EOS % 0.2 % (0-4.5); HEMATOCRIT 31.4 % (32.4-45.2); HEMOGLOBIN 10.4 GM/dL (10.7-15.3); LYMPH % 6.4 % (8-40); MCH 30.4 pg (25.7-33.7); MCHC 33.3 g/dl (32.0-36.0); MEAN CELL VOLUME 91.5 fl (80-96); MONO % 3.1 % (3.8-10.2); NEUT % 89.4 % (42.8-82.8); PLATELET COUNT 260 10^3/uL (134-434); RBC 3.43 M/mm3 (3.60-5.2); RDW 14.9 % (11.6-15.6); WHITE BLOOD COUNT 12.7 K/mm3 (4.0-10.0)
[2023-12-29] MEDS: PANTOPRAZOLE 40 MG TABLET PO SCH (09:44)
[2023-12-29 09:55] LABS: POTASSIUM 4.4 mmol/L (3.5-5.1)
[2023-12-29 09:58] LABS: CALCIUM 8.1 mg/dL (8.5-10.1)
[2023-12-29] MEDS: TAMSULOSIN HCL 0.4 MG CAP PO SCH (10:00)
[2023-12-29 10:02] LABS: CREATININE 0.3 mg/dL (0.55-1.3)
[2023-12-29] MEDS: MULTIVITAMINS (DAILY MVI) TABLET (FP) PO SCH (11:07)
[2023-12-29] MEDS: AMINO ACIDS/PROTEIN HYDROLYS 30 ML LIQUID.PKT PO SCH (11:12)
[2023-12-29] MEDS: COLLAGENASE CLOSTRIDIUM HIST. 30 GRAMS TUBE TP SCH (11:50)
[2023-12-29] MEDS: oxyCODONE HCL 5 MG TABLET PO PRN (14:32)
[2023-12-29] MEDS: ACETAMINOPHEN 325 MG TABLET (FP) PO PRN ×2 (14:33→23:03)
[2023-12-29] MEDS: oxyCODONE HCL 5 MG TABLET PO ONE (18:12)
[2023-12-29] MEDS: ACETAMINOPHEN 325 MG TABLET (FP) PO ONE (18:13)
[2023-12-30] MEDS ORDERED: HEPARIN NA (PORCINE) 5,000 UNITS/ML 1ML VIAL IVPUSH PRN ×2 (07:18)
[2023-12-30 08:18] LABS: ARTERIAL BLD GAS O2 SATURATION 85.6 % (95-98); ARTERIAL BLOOD GAS PO2 47.9 mmHg (80-100)
[2023-12-30] MEDS: FUROSEMIDE 40 MG/4 ML INJECTABLE VIAL IVPUSH ONE (08:18)
[2023-12-30 08:23] LABS: POTASSIUM 4.5 mmol/L (3.5-5.1)
[2023-12-30 08:25] LABS: CALCIUM 8.7 mg/dL (8.5-10.1)
[2023-12-30 08:26] LABS: ALBUMIN 1.5 g/dl (3.4-5.0); BLOOD UREA NITROGEN 19.2 mg/dL (7-18); MAGNESIUM 1.9 mg/dL (1.8-2.4)
[2023-12-30 08:27] LABS: ALLENS TEST POSITIVE
[2023-12-30 08:29] LABS: CREATININE 0.4 mg/dL (0.55-1.3); PHOSPHOROUS 3.3 mg/dL (2.5-4.9)
[2023-12-30 08:30] LABS: TOT PROT 5.4 g/dl (6.4-8.2)
[2023-12-30 08:31] LABS: BILIRUBIN,TOTAL 0.6 mg/dL (0.2-1)
[2023-12-30 08:31] LABS: ARTERIAL BLOOD GAS pH 7.456 (7.350-7.450)
[2023-12-30 08:34] LABS: INR 1.19 (0.83-1.09); N-TERMINAL BNP 1348.1 pg/ml (5-450); PROTHROMBIN TIME (PATIENT) 13.8 SEC (9.7-13.0)
[2023-12-30 08:37] LABS: ACTIVATED PTT 26.9 SECONDS (25.2-36.5)
[2023-12-30] MEDS: HEPARIN INFUSION - 25,000 UNITS/500 ML INFUS.BAG IVPB SCH (08:43)
[2023-12-30] MEDS: methylPREDNISolone NA SUCC 40 MG/1 ML VIAL IVPUSH SCH (12:39)
[2023-12-30] MEDS: MEROPENEM 1 GM in DEXTROSE 5%-WATER 100 ML IVPB SCH ×2 (15:56→17:36)
[2023-12-30] MEDS ORDERED: ACETAMINOPHEN 325 MG TABLET (FP) PO PRN ×2 (16:56)
[2023-12-30] MEDS ORDERED: MAG HYDROX/AL HYDROX/SIMETH 30 ML UNIT-DOSE CUP PO PRN (16:56)
[2023-12-30] MEDS ORDERED: ALBUTEROL SO4 HFA INHALER IH PRN (16:56)
[2023-12-30] MEDS ORDERED: oxyCODONE HCL 5 MG TABLET PO PRN (16:56)
[2023-12-30 17:42] LABS: ARTERIAL BLD GAS O2 SATURATION 99.7 % (95-98); ARTERIAL BLOOD GAS BASE EXCESS 5.3 mmol/L (-2-2); ARTERIAL BLOOD GAS PO2 264.8 mmHg (80-100); ARTERIAL BLOOD GAS pH 7.492 (7.350-7.450)
[2023-12-30 17:46] LABS: ALLENS TEST POSITIVE
[2023-12-30 17:47] LABS: VENT MODE ST
[2023-12-30] MEDS: ACETAMINOPHEN 1000 MG/100 ML BAG IVPB PRN (17:55)
[2023-12-31] MEDS: INSULIN ASPART SLIDING SCALE (NOVOLOG) 1 VIAL SQ SCH (06:03)
[2023-12-31 07:31] LABS: POTASSIUM 4.9 mmol/L (3.5-5.1)
[2023-12-31 07:36] LABS: ALBUMIN 1.4 g/dl (3.4-5.0); CALCIUM 8.8 mg/dL (8.5-10.1)
[2023-12-31 07:39] LABS: CREATININE 0.5 mg/dL (0.55-1.3)
[2023-12-31 07:40] LABS: BILIRUBIN,TOTAL 0.5 mg/dL (0.2-1); TOT PROT 5.6 g/dl (6.4-8.2)
[2023-12-31 07:48] LABS: BASO % 0.1 % (0-2.0); HEMATOCRIT 34.5 % (32.4-45.2); HEMOGLOBIN 10.9 GM/dL (10.7-15.3); LYMPH % 8.5 % (8-40); MCH 29.4 pg (25.7-33.7); MCHC 31.5 g/dl (32.0-36.0); MEAN CELL VOLUME 93.2 fl (80-96); MONO % 2.5 % (3.8-10.2); NEUT % 88.9 % (42.8-82.8); PLATELET COUNT 298 10^3/uL (134-434); RDW 14.5 % (11.6-15.6); WHITE BLOOD COUNT 11.1 K/mm3 (4.0-10.0)
[2023-12-31] MEDS: MULTIVITAMINS (DAILY MVI) TABLET (FP) PO SCH (10:00)
[2023-12-31] MEDS: PANTOPRAZOLE 40 MG TABLET PO SCH (10:01)
[2023-12-31] MEDS: TAMSULOSIN HCL 0.4 MG CAP PO SCH (10:01)
[2023-12-31] MEDS: ALBUTEROL SO4 2.5/IPRATROPIUM 0.5 INH SOL 3 ML VIAL.NEB. NEB SCH (15:28)
[2023-12-31] MEDS ORDERED: DEXTROSE 5%-LACTATED RINGERS 1,000 ML IV SCH ×2 (17:15)
[2023-12-31] MEDS: AMINO ACIDS/PROTEIN HYDROLYS 30 ML LIQUID.PKT PO SCH (18:07)
[2023-12-31] MEDS: AMINO ACIDS 4.25%/D5W 1,000 ML IV SCH (18:08)
[2023-12-31] MEDS: COLLAGENASE CLOSTRIDIUM HIST. 30 GRAMS TUBE TP SCH (18:09)
[2024-01-01 07:06] LABS: HEMATOCRIT 30.7 % (32.4-45.2); HEMOGLOBIN 9.9 GM/dL (10.7-15.3); MCH 29.8 pg (25.7-33.7); MCHC 32.3 g/dl (32.0-36.0); MEAN CELL VOLUME 92.3 fl (80-96); MEAN PLT VOLUME 8.4 fl (7.5-11.1); PLATELET COUNT 224 10^3/uL (134-434); RBC 3.32 M/mm3 (3.60-5.2); RDW 14.3 % (11.6-15.6); WHITE BLOOD COUNT 11.6 K/mm3 (4.0-10.0)
[2024-01-01 07:26] LABS: POTASSIUM 4.1 mmol/L (3.5-5.1)
[2024-01-01 07:36] LABS: ALBUMIN 1.2 g/dl (3.4-5.0); BLOOD UREA NITROGEN 37.8 mg/dL (7-18); CALCIUM 8.4 mg/dL (8.5-10.1)
[2024-01-01 07:39] LABS: CREATININE 0.5 mg/dL (0.55-1.3)
[2024-01-01 07:40] LABS: BILIRUBIN,TOTAL 0.3 mg/dL (0.2-1); TOT PROT 4.8 g/dl (6.4-8.2)
[2024-01-01 09:43] LABS: ANISOCYTOSIS 0; MACROCYTOSIS 0
[2024-01-02] MEDS ORDERED: INSULIN (NOVOLOG) ASPART 100 UNITS/ML 10ML VIAL ONE (06:24)
[2024-01-02 06:36] LABS: HEMATOCRIT 29.8 % (32.4-45.2); HEMOGLOBIN 9.6 GM/dL (10.7-15.3); MCH 29.5 pg (25.7-33.7); MCHC 32.3 g/dl (32.0-36.0); MEAN CELL VOLUME 91.4 fl (80-96); MEAN PLT VOLUME 8.4 fl (7.5-11.1); PLATELET COUNT 192 10^3/uL (134-434); RBC 3.26 M/mm3 (3.60-5.2); RDW 14.2 % (11.6-15.6); WHITE BLOOD COUNT 12.7 K/mm3 (4.0-10.0)
[2024-01-02 06:54] LABS: POTASSIUM 4.1 mmol/L (3.5-5.1)
[2024-01-02 06:59] LABS: ALBUMIN 1.4 g/dl (3.4-5.0); BLOOD UREA NITROGEN 42.6 mg/dL (7-18)
[2024-01-02 07:02] LABS: CREATININE 0.5 mg/dL (0.55-1.3)
[2024-01-02 07:03] LABS: BILIRUBIN,TOTAL 0.3 mg/dL (0.2-1)
[2024-01-02 09:58] LABS: ANISOCYTOSIS 0; HELMET CELLS 0; HOWELL-JOLLY BODIES 0; MACROCYTOSIS 0; OVALOCYTE 0; ROULEAU 0; SICKELED CELLS 0; TARGET CELLS 0; TEAR DROP CELLS 0; TOXIC GRANULATION 0
[2024-01-03 07:21] LABS: HEMATOCRIT 30.2 % (32.4-45.2); HEMOGLOBIN 9.9 GM/dL (10.7-15.3); MCHC 32.9 g/dl (32.0-36.0); MEAN PLT VOLUME 7.7 fl (7.5-11.1); PLATELET COUNT 154 10^3/uL (134-434); RBC 3.31 M/mm3 (3.60-5.2); RDW 14.2 % (11.6-15.6); WHITE BLOOD COUNT 8.2 K/mm3 (4.0-10.0)
[2024-01-03 07:40] LABS: POTASSIUM 4.2 mmol/L (3.5-5.1)
[2024-01-03 07:41] LABS: ALBUMIN 1.3 g/dl (3.4-5.0); CALCIUM 7.8 mg/dL (8.5-10.1)
[2024-01-03 07:45] LABS: CREATININE 0.2 mg/dL (0.55-1.3)
[2024-01-03 07:47] LABS: BILIRUBIN,TOTAL 0.3 mg/dL (0.2-1); TOT PROT 4.6 g/dl (6.4-8.2)
[2024-01-03] MEDS: ACETAMINOPHEN 1000 MG/100 ML BAG IVPB PRN (17:01)
[2024-01-03] MEDS: SODIUM CHLORIDE 500 ML IV STA (21:00)
[2024-01-04 13:00] LABS: ARTERIAL BLD GAS O2 SATURATION 94.2 % (95-98); ARTERIAL BLOOD GAS BASE EXCESS 5.5 mmol/L (-2-2); ARTERIAL BLOOD GAS PO2 61.1 mmHg (80-100); ARTERIAL BLOOD GAS pH 7.547 (7.350-7.450)
[2024-01-04 13:01] LABS: ALLENS TEST POSITIVE
[2024-01-04] MEDS ORDERED: DEXTROSE 50%-WATER 25 GM/50 ML DISP.SYRIN ONE (15:15)
[2024-01-04] MEDS: DEXTROSE 50%-WATER 25 GM/50 ML DISP.SYRIN IVPUSH ONE (15:20)
[2024-01-04 22:31] VITALS: RESP 18
[2024-01-05 07:19] LABS: HEMATOCRIT 29.7 % (32.4-45.2); HEMOGLOBIN 9.9 GM/dL (10.7-15.3); MCH 30.1 pg (25.7-33.7); MCHC 33.3 g/dl (32.0-36.0); MEAN CELL VOLUME 90.5 fl (80-96); MEAN PLT VOLUME 7.6 fl (7.5-11.1); PLATELET COUNT 93 10^3/uL (134-434); RBC 3.28 M/mm3 (3.60-5.2); RDW 14.5 % (11.6-15.6); WHITE BLOOD COUNT 5.1 K/mm3 (4.0-10.0)
[2024-01-05 07:30] LABS: POTASSIUM 3.3 mmol/L (3.5-5.1)
[2024-01-05 07:34] LABS: BLOOD UREA NITROGEN 11.9 mg/dL (7-18); CALCIUM 7.6 mg/dL (8.5-10.1)
[2024-01-05 07:35] LABS: ALBUMIN 1.1 g/dl (3.4-5.0)
[2024-01-05 07:38] LABS: CREATININE 0.2 mg/dL (0.55-1.3)
[2024-01-05 07:39] LABS: TOT PROT 4.2 g/dl (6.4-8.2)
[2024-01-05 07:42] LABS: BILIRUBIN,TOTAL 0.4 mg/dL (0.2-1)
[2024-01-05 11:30] LABS: ANISOCYTOSIS 1+; MACROCYTOSIS 0
[2024-01-05] MEDS: POTASSIUM CHLORIDE TABS 20 MEQ TABLET.ER (FP) PO ONE (11:48)
[2024-01-05] MEDS: SODIUM CHLORIDE 1,000 ML IV SCH (15:19)
[2024-01-05] MEDS ORDERED: MEROPENEM 1 GM VIAL (RESTRICTED TO ID) IVPB ONE (17:14)
[2024-01-06 07:37] LABS: BASO % 0.3 % (0-2.0); EOS % 2.6 % (0-4.5); HEMATOCRIT 26.4 % (32.4-45.2); HEMOGLOBIN 8.8 GM/dL (10.7-15.3); MCH 29.9 pg (25.7-33.7); MCHC 33.2 g/dl (32.0-36.0); MEAN CELL VOLUME 89.9 fl (80-96); MONO % 3.6 % (3.8-10.2); NEUT % 80.5 % (42.8-82.8); PLATELET COUNT 85 10^3/uL (134-434); RBC 2.94 M/mm3 (3.60-5.2); RDW 14.1 % (11.6-15.6); WHITE BLOOD COUNT 5.5 K/mm3 (4.0-10.0)
[2024-01-06 08:02] LABS: CHLORIDE 97 mmol/L (98-107); POTASSIUM 3.6 mmol/L (3.5-5.1); SODIUM 132 mmol/L (136-145)
[2024-01-06 08:03] LABS: CALCIUM 7.5 mg/dL (8.5-10.1)
[2024-01-06 08:04] LABS: ALBUMIN 1.1 g/dl (3.4-5.0); ANION GAP 6 mmol/L (4-13); BLOOD UREA NITROGEN 14.8 mg/dL (7-18); CO2 29 mmol/L (21-32); GLUCOSE,RANDOM 97 mg/dL (74-106)
[2024-01-06 08:07] LABS: CREATININE < 0.2 mg/dL (0.55-1.3); SGOT/AST 36 U/L (15-37); SGPT/ALT 25 U/L (13-61)
[2024-01-06 08:08] LABS: BILIRUBIN,TOTAL 0.4 mg/dL (0.2-1)
[2024-01-06 08:10] LABS: ALK PHOS 82 U/L (45-117)
[2024-01-06] MEDS: SODIUM CHLORIDE 1,000 ML IV SCH (14:18)
[2024-01-06] MEDS: DRONABINOL 2.5 MG CAPSULE PO SCH (16:25)
[2024-01-07 07:12] LABS: HEMATOCRIT 26.3 % (32.4-45.2); HEMOGLOBIN 8.7 GM/dL (10.7-15.3); MCH 29.8 pg (25.7-33.7); MCHC 32.9 g/dl (32.0-36.0); MEAN CELL VOLUME 90.7 fl (80-96); MEAN PLT VOLUME 7.6 fl (7.5-11.1); PLATELET COUNT 84 10^3/uL (134-434); RDW 14.1 % (11.6-15.6); WHITE BLOOD COUNT 6.9 K/mm3 (4.0-10.0)
[2024-01-07 07:21] LABS: BASO % 0.4 % (0-2.0); EOS % 2.5 % (0-4.5); HEMATOCRIT 26.6 % (32.4-45.2); HEMOGLOBIN 8.7 GM/dL (10.7-15.3); LYMPH % 12.2 % (8-40); MCH 29.4 pg (25.7-33.7); MCHC 32.7 g/dl (32.0-36.0); MEAN CELL VOLUME 90.1 fl (80-96); MEAN PLT VOLUME 7.8 fl (7.5-11.1); MONO % 3.3 % (3.8-10.2); NEUT % 81.6 % (42.8-82.8); PLATELET COUNT 87 10^3/uL (134-434); RBC 2.95 M/mm3 (3.60-5.2); RDW 13.7 % (11.6-15.6); WHITE BLOOD COUNT 6.7 K/mm3 (4.0-10.0)
[2024-01-07 07:46] LABS: CHLORIDE 98 mmol/L (98-107); POTASSIUM 3.4 mmol/L (3.5-5.1); SODIUM 133 mmol/L (136-145)
[2024-01-07 08:15] LABS: CALCIUM 7.4 mg/dL (8.5-10.1)
[2024-01-07 08:16] LABS: ANION GAP 7 mmol/L (4-13); BLOOD UREA NITROGEN 11.5 mg/dL (7-18); CO2 28 mmol/L (21-32); GLUCOSE,RANDOM 84 mg/dL (74-106)
[2024-01-07 08:19] LABS: SGOT/AST 43 U/L (15-37); SGPT/ALT 28 U/L (13-61)
[2024-01-07 08:20] LABS: BILIRUBIN,TOTAL 0.3 mg/dL (0.2-1)
[2024-01-07 08:21] LABS: TOT PROT 3.8 g/dl (6.4-8.2)
[2024-01-07 08:22] LABS: ALK PHOS 79 U/L (45-117)
[2024-01-07 09:01] LABS: CREATININE < 0.2 mg/dL (0.55-1.3)
[2024-01-07] MEDS: POTASSIUM CHLORIDE TABS 20 MEQ TABLET.ER (FP) PO ONE (17:08)
[2024-01-08 09:30] VITALS: PULSE 74
[2024-01-08] MEDS: SODIUM CHLORIDE 500 ML IV STA (09:55)
[2024-01-08 13:07] VITALS: BP 96/41; TEMP 98.4
== END 2024-01-08 13:19 | DRG 871 ==
LOC: JER 16:45 → JERBED 23:29 → J2W 12-15 00:44 → J5S 12-28 11:37 → J2W 12-30 12:23 → J4S 01-04 22:15
PROVIDERS: ADMIT Internal Medicine
PROC: XW033E5 Introduction of Remdesivir Anti-infective into Peripheral Vein, Percutaneous Approach, New Technology Group 5 (ICD-10-PCS; principal; 2023-12-14)
DX: A41.89 Other specified sepsis (principal); G92.8 Other toxic encephalopathy; L89.153 Pressure ulcer of sacral region, stage 3; J96.01 Acute respiratory failure with hypoxia; U07.1 COVID-19; J12.82 Pneumonia due to coronavirus disease 2019; I21.A1 Myocardial infarction type 2; G93.41 Metabolic encephalopathy; N17.9 Acute kidney failure, unspecified; M62.82 Rhabdomyolysis; J90 Pleural effusion, not elsewhere classified; E87.0 Hyperosmolality and hypernatremia; E87.4 Mixed disorder of acid-base balance; R18.8 Other ascites; J98.11 Atelectasis; E87.20 Acidosis, unspecified; R64 Cachexia; Z68.1 Body mass index [BMI] 19.9 or less, adult; I48.0 Paroxysmal atrial fibrillation; D64.9 Anemia, unspecified; E83.39 Other disorders of phosphorus metabolism; E83.41 Hypermagnesemia; E87.6 Hypokalemia; E16.2 Hypoglycemia, unspecified; I16.0 Hypertensive urgency; D50.9 Iron deficiency anemia, unspecified; D69.6 Thrombocytopenia, unspecified; R31.0 Gross hematuria
CPT/HCPCS: 0241U-QW; 36415; 36600; 70450-TC; 71045-TC-FY; 71250-TC; 71275-TC; 72125-TC; 72128-TC; 72170-TC-FY; 73090-TC-RT-FY; 73110-TC-RT-FY; 73130-TC-RT-FY; 74176-TC; 74177-TC; 80048; 80053; 81003; 82550; 82553; 82803; 82962; 82977; 83036; 83605; 83690; 83735; 83880; 83935; 84100; 84484; 85025; 85027; 85610; 85730; 86140; 86850; 86900; 86901; 87040; 87086; 87635; 87899; 93005; 93010; 93306-TC; 94640; 94660; 94761; 97116-GP; 97163-GP; 99285-25; G0008; J0131; J0248; J1100; J1644; Q2036; Q9967